=== PATIENT | female | born 1955 | race African-American/Black ===

== ENCOUNTER 2022-12-03 14:14 | Inpatient (IN) | payer MEDICARE, OTHER ==
[~2022-12-03 14:14] MED LIST: Adenosine 6 MG/2 ML VIAL ONE; Atropine Sulfate 1 mg/10 ml Syringe ONE; DOPamine 400 MG/D5W 250 ML 250 ML ONE; EPINEPHrine 1 MG/10 ML Abboject SYRINGE ONE; Heparin 10,000 UNITS/ 10 ML VIAL ONE; Iopamidol 370 76% 100 ML VIAL ONE; Lidocaine 1% (PF) 30 ML VIAL ONE; Nitroglycerin 50 MG/250 ML BOT 250 ML ONE; Ondansetron PF 4 MG/2 ML Vial ONE; PHENYLEPHRINE-NS 100 MCG/ML 10 ML SYRINGE ONE; Verapamil 5 MG/2 ML VIAL ONE
[2022-12-03] MEDS ORDERED: TICAGRELOR 90 MG TABLET ONE (14:16)
[2022-12-03] MEDS ORDERED: Aggrastat 12.5 MG/250 ML 250 ML ONE (14:36)
[2022-12-03] MEDS ORDERED: Mag-Al 1200 mg/1200 mg/30 ML UDCUP PO PRN (14:53)
[2022-12-03] MEDS ORDERED: Morphine 2 MG/ML VIAL SLOW IVP PRN (14:53)
[2022-12-03] MEDS ORDERED: traMADol HCl 50 MG TAB PO PRN (14:53)
[2022-12-03] MEDS ORDERED: Zolpidem Tartrate 5 MG TAB PO PRN (14:53)
[2022-12-03] MEDS ORDERED: Nitroglycerin 0.4 MG TAB (25 Tab Bottle) SL PRN (14:53)
[2022-12-03] MEDS ORDERED: Acetaminophen/Codeine 30-300mg Tablet PO PRN (14:53)
[2022-12-03] MEDS ORDERED: Milk Of Magnesia 30 ML UDCUP PO PRN (14:53)
[2022-12-03] MEDS ORDERED: Sodium Chloride 0.9% 1,000 ML IV SCH (15:00)
[2022-12-03] MEDS ORDERED: Aggrastat 12.5 MG/250 ML 250 ML IVPB SCH (15:00)
[2022-12-03 15:50] LABS: CKMB 51.2 ng/mL (0-6.6)
[2022-12-03 15:54] LABS: Troponin I 2.105 ng/mL (< 0.028)
[2022-12-03 16:15] VITALS: BMI 32.3
[2022-12-03] MEDS ORDERED: hydrALAZINE 20 MG/ML VIAL SLOW IVP SCH (18:45)
[2022-12-03] MEDS ORDERED: hydrALAZINE 20 MG/ML VIAL SLOW IVP PRN (19:29)
[2022-12-03] MEDS: Losartan 25 MG TAB PO SCH (19:45)
[2022-12-03] MEDS: Rosuvastatin 20 MG TAB PO SCH (19:45)
[2022-12-03] MEDS ORDERED: Atorvastatin Calcium 40 MG TAB PO SCH (21:00)
[2022-12-03 21:29] LABS: CKMB 220.1 ng/mL (0-6.6)
[2022-12-03 21:34] LABS: Troponin I 29.902 ng/mL (< 0.028)
[2022-12-04 06:54] LABS: #Lymphocytes 1.6 thou/uL (1.20-3.40); #Monocytes 0.5 thou/uL (0.11-0.59); #Neutrophils 4.5 thou/uL (1.40-6.50); %Basophils 0.3 % (0.0-1.0); %Eosinophils 0.6 % (0.0-10.0); %Monocytes 7.3 % (0.0-10.0); %Neutrophils 67.8 % (42.0-75.0); Mean Corpuscular HGB CONC 32.2 g/dL (32.0-36.0); Mean Corpuscular Hemoglobin 30.1 pg (27.0-31.0); Mean Corpuscular Volume 93.7 fl (78.0-98.0); Mean Platelet Volume 6.9 fL (7.4-10.4); Platelet Count 233 10x3/uL (130-400); RBC Distribution Width 12.3 % (11.5-14.5); Red Blood Cell (RBC) Count 3.97 mill/uL (4.20-5.40); White Blood Cell (WBC) Count 6.7 10x3/uL (4.8-10.8)
[2022-12-04 07:10] LABS: ALT (SGPT) 66 U/L (8-55); AST (SGOT) 134 U/L (5-34); Albumin 3.6 g/dL (3.4-4.8); Alkaline Phosphatase 66 U/L (40-110); Anion Gap 12 mmol/L (10-20); BUN (Urea Nitrogen) 11 mg/dL (9.8-20.1); Bilirubin, Total 0.4 mg/dL (0.2-1.2); Calc. Creatinine Clearance 89 mL/min (70-130); Calcium 8.5 mg/dL (7.8-10.44); Carbon Dioxide 23 mmol/L (23-31); Cardiac Risk 3.1 (Less than 4.5); Chloride 109 mmol/L (98-107); Cholesterol 100 mg/dl (< 200 Desired); Estimated GFR 77; Globulin 2.5 g/dL (2.4-3.5); Glucose 103 mg/dL (80-115); HDL Cholesterol 32 mg/dL (>60 Neg Risk); LDL Cholesterol, Calculated 51 mg/dL; Potassium 3.8 mmol/L (3.5-5.1); Protein, Total 6.1 g/dL (5.8-8.1); Sodium 140 mmol/L (136-145); Triglycerides 86 mg/dL (Less than 150)
[2022-12-04 07:27] LABS: Free T4 (Free Thyroxine) 0.83 ng/dL (0.70-1.48)
[2022-12-04] MEDS ORDERED: Carvedilol 3.125 MG TAB PO SCH ×2 (08:00→10:30)
[2022-12-04] MEDS: Aspirin Chewable 81 MG TAB PO SCH (08:25)
[2022-12-04] MEDS: Losartan 25 MG TAB PO SCH ×2 (08:25→20:35)
[2022-12-04] MEDS: Clopidogrel Bisulfate 75 MG TAB PO SCH (08:25)
[2022-12-04] MEDS: Carvedilol 3.125 MG TAB PO SCH (18:40)
[2022-12-04] MEDS: Rosuvastatin 20 MG TAB PO SCH (20:35)
[2022-12-05 04:29] LABS: #Eosinphils 0.1 thou/uL (0.0-0.7); #Lymphocytes 1.8 thou/uL (1.20-3.40); #Monocytes 0.5 thou/uL (0.11-0.59); #Neutrophils 3.1 thou/uL (1.40-6.50); %Basophils 0.1 % (0.0-1.0); %Eosinophils 1.5 % (0.0-10.0); %Lymphocytes 32.8 % (21.0-51.0); %Monocytes 8.5 % (0.0-10.0); %Neutrophils 57.1 % (42.0-75.0); ALT (SGPT) 48 U/L (8-55); AST (SGOT) 66 U/L (5-34); Albumin 3.4 g/dL (3.4-4.8); Alkaline Phosphatase 70 U/L (40-110); Anion Gap 12 mmol/L (10-20); BUN (Urea Nitrogen) 12 mg/dL (9.8-20.1); Bilirubin, Total 0.4 mg/dL (0.2-1.2); Calc. Creatinine Clearance 89 mL/min (70-130); Calcium 8.5 mg/dL (7.8-10.44); Carbon Dioxide 22 mmol/L (23-31); Chloride 108 mmol/L (98-107); Estimated GFR 77; Globulin 2.6 g/dL (2.4-3.5); Glucose 102 mg/dL (80-115); Hemoglobin 12.3 g/dL (12.0-16.0); Mean Corpuscular HGB CONC 31.4 g/dL (32.0-36.0); Mean Corpuscular Hemoglobin 30.3 pg (27.0-31.0); Mean Corpuscular Volume 96.6 fl (78.0-98.0); Mean Platelet Volume 7.1 fL (7.4-10.4); Platelet Count 208 10x3/uL (130-400); Potassium 3.7 mmol/L (3.5-5.1); RBC Distribution Width 12.4 % (11.5-14.5); Red Blood Cell (RBC) Count 4.06 mill/uL (4.20-5.40); Sodium 138 mmol/L (136-145); White Blood Cell (WBC) Count 5.4 10x3/uL (4.8-10.8)
[2022-12-05] MEDS: Carvedilol 3.125 MG TAB PO SCH (08:05)
[2022-12-05] MEDS: Aspirin Chewable 81 MG TAB PO SCH (08:05)
[2022-12-05] MEDS: Clopidogrel Bisulfate 75 MG TAB PO SCH (08:05)
[2022-12-05] MEDS: Losartan 25 MG TAB PO SCH (08:05)
[2022-12-05 13:15] VITALS: BP 161/96
[2022-12-05 13:38] VITALS: TEMP 98.2
== END 2022-12-05 13:30 | disposition home or self-care (01) | DRG 247 ==
LOC: SDC 14:14 → CCU 14:28
PROVIDERS: ADMIT Internal Medicine Cardiovascular Disease; ATTEND Internal Medicine Cardiovascular Disease
PROC: 027035Z Dilation of Coronary Artery, One Artery with Two Drug-eluting Intraluminal Devices, Percutaneous Approach (ICD-10-PCS; principal; 2022-12-03)
PROC: 4A023N7 Measurement of Cardiac Sampling and Pressure, Left Heart, Percutaneous Approach (ICD-10-PCS; 2022-12-03)
PROC: B2151ZZ Fluoroscopy of Left Heart using Low Osmolar Contrast (ICD-10-PCS; 2022-12-03)
PROC: B2111ZZ Fluoroscopy of Multiple Coronary Arteries using Low Osmolar Contrast (ICD-10-PCS; 2022-12-03)
DX: I21.19 ST elevation (STEMI) myocardial infarction involving other coronary artery of inferior wall (principal); I25.10 Atherosclerotic heart disease of native coronary artery without angina pectoris; I10 Essential (primary) hypertension; E78.5 Hyperlipidemia, unspecified; E66.9 Obesity, unspecified; R73.03 Prediabetes; Z68.36 Body mass index [BMI] 36.0-36.9, adult; Z79.899 Other long term (current) drug therapy
CPT/HCPCS: 36415; 80053; 80061; 82553; 83036; 84439; 84443; 85025; 85347; 92928; 92941; 93005; 93010; 93306; 93458; 93798; C1725; C1769; C1874; C1887; C9600; C9606; J0153; J0171; J0360; J0461; J1265; J1644; J2001; J2405; J3246; Q9967